=== PATIENT | female | born 1940 | race Hispanic/Latino ===

== ENCOUNTER 2020-12-30 15:41 | Emergency (ER) | payer SELFPAY ==
[2020-12-30] MEDS ORDERED: LIDOCAINE 1% W/EPI 1:100,000 MDV 50 ML VIAL ONE (16:05)
[2020-12-30] MEDS ORDERED: TETANUS & DIPHTHERIA TOX,ADULT 0.5 ML VIAL ONE (16:53)
[2020-12-30] MEDS ORDERED: KETOROLAC 30 MG/ML INJ ONE (16:53)
[2020-12-30] MEDS ORDERED: NACL 0.9% IRR SOLN 2,000 ML IRR ONE (17:25)
--- NOTE | 2020-12-30 17:34 | RAD REPORT ---
EXAM DESCRIPTION: RAD - Tib Fib Right - 12/30/2020 5:21 pm CLINICAL HISTORY: PAIN COMPARISON: <Comparisons> FINDINGS: Soft tissue laceration is seen along the lateral aspect the leg. Prominent knee and ankle joint degenerative changes are noted. No acute fracture or dislocation.
--- NOTE | 2020-12-30 18:27 | ER ---
Nurse's Notes [facility] Name: Moni Polanco Age: 80 yrs Sex: Female : 1940 Arrival Date: 12/30/2020 Time: 15:47 Bed 19 Private MD: Diagnosis: Laceration without foreign body, right lower leg Presentation: 12/30 15:54 Chief complaint: Family assisted in wheeling patient. patient was at a family function. zb She was in her wheel chair when the wheelchair caught on something and she fell . She ended up tearing the area on her right leg. patient currently has a right leg laceration and this bleeding. Coronavirus screen: At this time, the client does not indicate any symptoms associated with coronavirus-19. Ebola Screen: No symptoms or risks identified at this time. Complicating Factors: laceration. Initial Sepsis Screen: Does the patient meet any 2 criteria? No. Patient's initial sepsis screen is negative. Does the patient have a suspected source of infection? No. Patient's initial sepsis screen is negative. Risk Assessment: Do you want to hurt yourself or someone else? Patient reports no desire to harm self or others. Onset of symptoms was December 30, 2020. 15:54 Acuity: ALIE 3 zb 15:54 Method Of Arrival: Wheelchair zb Triage Assessment: 16:03 General: Appears uncomfortable, Behavior is calm, cooperative, appropriate for age. zb Pain: Complains of pain in lateral aspect of right calf Pain does not radiate. Pain currently is 10 out of 10 on a pain scale. Quality of pain is described as sharp, throbbing, Pain began suddenly, 30 min ago. Alleviated by nothing. Noted to be moaning, Also complains of no other associated symptoms. Neuro: Level of Consciousness is awake, alert, obeys commands, Oriented to person, place, time, situation. Cardiovascular: Capillary refill < 3 seconds Patient's skin is warm and dry. Cardiovascular: Edema is 2+ to right ankle, right foot and right toes. Respiratory: Respiratory: Airway is patent Respiratory effort is even, unlabored, Respiratory pattern is regular, symmetrical. Derm: Skin is intact, is healthy with good turgor, Skin is moist, Skin is normal, Wound noted lateral aspect of right calf Wound is 2.5 inch deep jagged laceration about 6 inch long. moderate bleeding present. Injury Description: Laceration sustained to lateral aspect of right calf is jagged, 2.6 to 7.5 cm long, bleeding moderately, was sustained 30-60 minutes ago. is bleeding moderately a dressing was applied. Historical: - Allergies: 16:02 No Known Allergies; zb - Home Meds: 16:02 naproxen Oral [Active]; losartan oral oral [Active]; zb - PMHx: 16:03 Hypertension; Arthritis; zb - PSHx: 16:02 Unable to obtain; zb - Immunization history:: Adult Immunizations up to date. - Social history:: Smoking status: unknown Patient/guardian denies using alcohol, street drugs, The patient lives with family. - Family history:: not pertinent. Screenin:08 Abuse screen: Denies threats or abuse. Denies injuries from another. Nutritional zb screening: No deficits noted. Tuberculosis screening: No symptoms or risk factors identified. Fall Risk Fall in past 12 months (25 points). Secondary diagnosis (15 points) impaired mobility, No IV (0 pts). Ambulatory Aid- None/Bed Rest/Nurse Assist (0 pts). Gait- Impaired (20 pts.). Mental Status- Oriented to own ability (0 pts). Total Guillaume Fall Scale indicates Low Risk Score (25-44 pts). Fall prevention measures have been instituted. Side Rails Up X 2 Placed close to Nursing Station Frequent Obs/Assesments occuring Family Present and informed to notify staff if they need to leave bedside As available Patient and Family Educated on Fall Prevention Program and strategies. Assessment: 16:00 Reassessment: assessment completed in triage. zb 16:09 Musculoskeletal: Capillary refill < 3 seconds, in bilateral toes. Range of motion: zb intact in all extremities. Injury Description: Laceration sustained to lateral aspect of right calf is jagged, 2.6 to 7.5 cm long, bleeding moderately, was sustained 30-60 minutes ago. is bleeding moderately. 17:00 Reassessment: Patient appears in no apparent distress at this time. Patient and/or zb family updated on plan of care and expected duration. Pain level reassessed. Patient is alert, oriented x 3, equal unlabored respirations, skin warm/dry/pink. family remains at beside. LAC tray set up. patient medicated. 18:00 Reassessment: Patient appears in no apparent distress at this time. Patient and/or zb family updated on plan of care and expected duration. Pain level reassessed. Patient is alert, oriented x 3, equal unlabored respirations, skin warm/dry/pink. procedure preformed and completed. patient tolerated well. dressing placed. c/d/i . family and patient educated on wound care. Vital Signs: 15:54 BP 171 / 73; Pulse 75; Resp 18; Temp 98.1; Pulse Ox 100% ; Weight 81.65 kg; Height 5 zb ft. 2 in. (157.48 cm); Pain 10/10; 16:30 BP 158 / 86; Pulse 69; Resp 18; Pulse Ox 99% on R/A; zb 17:20 BP 167 / 82; Pulse 66; Resp 16; Pulse Ox 100% on R/A; zb 18:12 BP 171 / 70; Pulse 66; Resp 16; Pulse Ox 100% on R/A; zb 15:54 Body Mass Index 32.92 (81.65 kg, 157.48 cm) zb ED Course: 15:47 Patient arrived in ED. zb 15:48 Jung Mata PA is PHCP. [facility] 15:48 Torres Carrera MD is Attending Physician. [facility] 15:54 Trena Shultz, RN is Primary Nurse. zb 15:59 Triage completed. zb 16:09 Patient has correct armband on for positive identification. Bed in low position. Call zb light in reach. Side rails up X 1. Adult w/ patient. Pulse ox on. NIBP on. Door closed. Noise minimized. 16:10 Arm band placed on. zb 17:21 Tib Fib Right XRAY In Process Unspecified. EDMS 17:45 Assist provider with laceration repair on lateral aspect of right calf that was between zb 2.6 to 7.5 cm using jocelyn. Set up tray. Performed by Torres Carrera MD Dressed with band aid, Patient tolerated well. Wound care: to laceration located on lateral aspect of right calf was irrigated with normal saline, dressed with Kerlix, non-adherence , Patient tolerated well. 18:19 Patient did not have IV access during this emergency room visit. zb Administered Medications: 16:49 Drug: TORadol 60 mg Route: IM; Site: right deltoid; zb 17:15 Follow up: Response: No adverse reaction; Pain is decreased zb 16:50 Drug: Tetanus-Diphtheria Toxoid Adult 0.5 ml {Gift Shop Clerk: [employer]. Exp: zb 01/10/2022. Lot #: [id number]. } Route: IM; Site: right deltoid; 17:15 Follow up: Response: No adverse reaction zb Outcome: 18:19 Discharged to home ambulatory. zb 18:19 Condition: stable 18:19 Discharge instructions given to patient, family, Instructed on discharge instructions, zb follow up and referral plans. medication usage, Demonstrated understanding of instructions, follow-up care, medications, wound care, Prescriptions given X 1. 18:27 Discharge ordered by . nabila 18:51 Patient left the ED. zb Signatures: Dispatcher [employer] EDMS Jung Mata PA PA jmm Alzahri, Mohammad, MD MD ma2 Brown, Zipporah, RN RN zb
--- NOTE | 2020-12-30 18:28 | EDPHYS ---
Physician Documentation [facility] Name: Moni Polanco Age: 80 yrs Sex: Female : 1940 Arrival Date: 12/30/2020 Time: 15:47 Bed 19 Private MD: ED Physician Torres Carrera HPI: 12/30 16:11 This 80 yrs old Female presents to ER via Wheelchair with complaints of ma2 Laceration To Leg. 16:12 This 80 yrs old Female presents to ER via Wheelchair with complaints of ma2 Laceration To Leg. 16:12 This 80 yrs old Female presents to ER via Wheelchair with complaints of ma2 Laceration To Leg. 16:11 Onset: The symptoms/episode began/occurred gradually. ma2 16:12 Onset: The symptoms/episode began/occurred gradually. Onset: The symptoms/episode ma2 began/occurred gradually, 1 day(s) ago. Onset: The symptoms/episode began/occurred suddenly, 1 day(s) ago. Associated signs and symptoms: Pertinent negatives: dizziness, heavy bleeding, numbness distal to injury, suspected foreign body. The patient has not experienced similar symptoms in the past. Historical: - Allergies: 16:02 No Known Allergies; zb - Home Meds: 16:02 naproxen Oral [Active]; losartan oral oral [Active]; zb - PMHx: 16:03 Hypertension; Arthritis; zb - PSHx: 16:02 Unable to obtain; zb - Immunization history:: Adult Immunizations up to date. - Social history:: Smoking status: unknown Patient/guardian denies using alcohol, street drugs, The patient lives with family. - Family history:: not pertinent. ROS: 16:12 Constitutional: Negative for fever, chills, and weight loss. ma2 16:12 All other systems are negative. Exam: 16:12 Constitutional: This is a well developed, well nourished patient who is awake, alert, ma2 and in no acute distress. Head/Face: Normocephalic, atraumatic. Eyes: Pupils equal round and reactive to light, extra-ocular motions intact. Lids and lashes normal. Conjunctiva and sclera are non-icteric and not injected. Cornea within normal limits. Periorbital areas with no swelling, redness, or edema. ENT: Nares patent. No nasal discharge, no septal abnormalities noted. Tympanic membranes are normal and external auditory canals are clear. Oropharynx with no redness, swelling, or masses, exudates, or evidence of obstruction, uvula midline. Mucous membranes moist. Neck: Trachea midline, no thyromegaly or masses palpated, and no cervical lymphadenopathy. Supple, full range of motion without nuchal rigidity, or vertebral point tenderness. No Meningismus. Chest/axilla: Normal chest wall appearance and motion. Nontender with no deformity. No lesions are appreciated. Cardiovascular: Regular rate and rhythm with a normal S1 and S2. No gallops, murmurs, or rubs. Normal PMI, no JVD. No pulse deficits. Respiratory: Lungs have equal breath sounds bilaterally, clear to auscultation and percussion. No rales, rhonchi or wheezes noted. No increased work of breathing, no retractions or nasal flaring. Abdomen/GI: Soft, non-tender, with normal bowel sounds. No distension or tympany. No guarding or rebound. No evidence of tenderness throughout. Skin: Warm, dry with normal turgor. Normal color with no rashes, no lesions, and no evidence of cellulitis. MS/ Extremity: right leg laceration deep, Pulses equal, no cyanosis. Neurovascular intact. Full, normal range of motion. Neuro: Awake and alert, GCS 15, oriented to person, place, time, and situation. Cranial nerves II-XII grossly intact. Motor strength 5/5 in all extremities. Sensory grossly intact. Cerebellar exam normal. Normal gait. Vital Signs: 15:54 BP 171 / 73; Pulse 75; Resp 18; Temp 98.1; Pulse Ox 100% ; Weight 81.65 kg; Height 5 zb ft. 2 in. (157.48 cm); Pain 10/10; 16:30 BP 158 / 86; Pulse 69; Resp 18; Pulse Ox 99% on R/A; zb 17:20 BP 167 / 82; Pulse 66; Resp 16; Pulse Ox 100% on R/A; zb 18:12 BP 171 / 70; Pulse 66; Resp 16; Pulse Ox 100% on R/A; zb 15:54 Body Mass Index 32.92 (81.65 kg, 157.48 cm) zb Laceration: 18:24 Wound Repair of 30cm ( 11.8in ) subcutaneous laceration to right leg. Irregularly ma2 shaped.. Minimal contamination.. Profuse bleeding noted.. Moderate contamination.. Distal neuro/vascular/tendon intact. Anesthesia: Local anesthetic administered with 20 mls of 1% lidocaine w/ Epi. Wound prep: Extensive cleansing, Wound irrigation, Wound debrided. Skin closed with 26 1-0 Robina using simple sutures and sterile technique. Dressed with 4x4's. Patient tolerated well. MDM: 18:24 Differential diagnosis: laceration full thickness, no tendon or avscular injury, no ma2 nerve lac. Data reviewed: vital signs, nurses notes. Counseling: I had a detailed discussion with the patient and/or guardian regarding: the historical points, exam findings, and any diagnostic results supporting the discharge/admit diagnosis, the presence of at least one elevated blood pressure reading (>120/80) during this emergency department visit, the need for outpatient follow up. Response to treatment: the patient's symptoms have markedly improved after treatment. 18:27 Patient medically screened. ma2 12/30 16:05 Order name: Tib Fib Right XRAY; Complete Time: 18:24 ma2 Administered Medications: 16:49 Drug: TORadol 60 mg Route: IM; Site: right deltoid; zb 17:15 Follow up: Response: No adverse reaction; Pain is decreased zb 16:50 Drug: Tetanus-Diphtheria Toxoid Adult 0.5 ml {Chief Compliance Officer: [facility]. Exp: zb 01/10/2022. Lot #: [id number]. } Route: IM; Site: right deltoid; 17:15 Follow up: Response: No adverse reaction zb Disposition: 12/30/20 18:27 Discharged to Home. Impression: Laceration without foreign body, right lower leg. - Condition is Stable. - Discharge Instructions: Laceration Care, Adult, [id number]. - Prescriptions for Diclofenac Sodium 75 mg Oral Tablet Sustained Release - take 1 tablet by ORAL route 2 times per day; 30 tablet. - Medication Reconciliation Form, Thank You Letter, Antibiotic Education, Prescription Opioid Use form. - Follow up: Private Physician; When: Tomorrow; Reason: If symptoms return, Continuance of care. - Notes: remove robina in 2-3 weeks Signatures: Dispatcher [employer] EDAR Torres Carrera MD MD ma2 Trena Shultz RN RN zb Corrections: (The following items were deleted from the chart) 18:51 18:27 12/30/2020 18:27 Discharged to Home. Impression: Laceration without foreign body, zb right lower leg. Condition is Stable. Prescriptions for Diclofenac Sodium 75 mg Oral Tablet Sustained Release - take 1 tablet by ORAL route 2 times per day; 30 tablet. and Forms are Medication Reconciliation Form, Thank You Letter, Antibiotic Education, Prescription Opioid Use. Follow up: Private Physician; When: Tomorrow; Reason: If symptoms return, Continuance of care. ma2
[2020-12-30 19:09] VITALS: TEMP 98.9; O2SAT 100
== END 2020-12-30 18:51 | disposition home or self-care (01) ==
LOC: ER 15:41
PROC: 0JQN0ZZ Repair Right Lower Leg Subcutaneous Tissue and Fascia, Open Approach (ICD-10-PCS; principal; 2020-12-30)
DX: S81.811A Laceration without foreign body, right lower leg, initial encounter (principal); W05.0XXA Fall from non-moving wheelchair, initial encounter; Y93.89 Activity, other specified; Y92.89 Other specified places as the place of occurrence of the external cause; Z23 Encounter for immunization; I10 Essential (primary) hypertension
CPT/HCPCS: 90471; 90714; 96372; 99284